=== PATIENT | male | born 1950 | race Caucasian/White ===

== ENCOUNTER 2021-03-24 11:38 | Emergency (ER) | payer MEDICARE, OTHER ==
[~2021-03-24] VITALS: Ht 177.8 cm; Wt 76.9 kg
[2021-03-24 11:39] VITALS: BP 164/73
[2021-03-24] MEDS ORDERED: PRAV40TA2 PO (11:54)
--- NOTE | 2021-03-24 14:00 | REP ---
INDICATION: swelling/pain COMPARISON: None. TECHNIQUE: Real time compression and duplex Doppler interrogation of the left lower extremity deep venous system is performed, including the right common femoral vein.Compression of the left peroneal and posterior tibial veins is performed. FINDINGS: There is diffuse nonocclusive thrombus in the common femoral vein, superficial femoral vein and popliteal vein.The right common femoral vein demonstrates no thrombus.The left peroneal and posterior tibial veins could not be visualized due to edema. IMPRESSION: Diffuse nonocclusive thrombus extending throughout the common femoral vein, superficial femoral vein and popliteal vein. <Electronically signed by Etienne Antonio > 03/24/21 [id number]
[2021-03-24] MEDS ORDERED: ELIQ5TAB PO (14:19)
== END 2021-03-24 14:41 | disposition home or self-care (01) ==
LOC: M ED 11:38
DX: I82.412 Acute embolism and thrombosis of left femoral vein (principal); E78.5 Hyperlipidemia, unspecified; Z88.0 Allergy status to penicillin